=== PATIENT | female | born 1980 | race African-American/Black ===

== ENCOUNTER 2022-07-29 08:47 | Outpatient (CLI) | payer BC | END 2022-07-29 08:48 | disposition home or self-care (01) | LOC: CSHMAMMO 08:47 | PROVIDERS: ATTEND Family Medicine | DX: Z12.31 Encounter for screening mammogram for malignant neoplasm of breast (principal); Z80.3 Family history of malignant neoplasm of breast | CPT/HCPCS: 77063; 77067 ==

== ENCOUNTER 2022-08-04 08:19 | Outpatient (CLI) | payer BC | END 2022-08-04 08:20 | disposition home or self-care (01) | LOC: CSHULT 08:19 | PROVIDERS: ATTEND Family Medicine | DX: R92.1 Mammographic calcification found on diagnostic imaging of breast (principal) ==